=== PATIENT | male | born 1970 ===

== ENCOUNTER 2020-05-26 05:30 | Day surgery (SDC) | payer OTHER | END 2020-05-26 14:30 | disposition home or self-care (01) | LOC: CIR.AMB 05:30 | PROVIDERS: ATTEND Otolaryngology Otology & Neurotology | DX: H72.02 Central perforation of tympanic membrane, left ear (principal); H61.322 Acquired stenosis of left external ear canal secondary to inflammation and infection; Z20.822 Contact with and (suspected) exposure to COVID-19 ==